=== PATIENT | male | born 1935 | race Caucasian/White ===

== ENCOUNTER 2017-07-21 14:58 | Inpatient (IN) | payer OTHER, BC ==
[~2017-07-21] VITALS: Ht 177.8 cm; Wt 76.7 kg
--- NOTE | ~2017-07-21 | S ---
[facility] Yazmin lynda[address]com[place] [place] [address] SURGICAL PATH RPT PROCEDURE Name: JEREMIAS SMITH Room #: 250-P ADM IN M.R.#: [id number] Admission: 08/18/17 Date of : 39 Discharge: Report #: [id number] Path Case #: [id number] PATHOLOGY REPORT COLLECTION DATE: 08/18/2017 RECEIVED DATE: 08/18/2017 SUBMITTING PHYS: Dr. Johann Abarca OTHER PHYS: SPECIMEN(S) RECEIVED: A.Left carotid artery plaque * * * * * * * * * * * * FINAL DIAGNOSIS: "Left carotid artery plaque", endarterectomy: - Calcific atherosclerosis. (CLW:kristina; 08/19/2017) PATHOLOGIST: Rhea Haley M.D. REPORT ELECTRONICALLY SIGNED BY: Rhea Haley M.D. DATE/TIME: 08/19/2017 15:18 * * * * * * * * * * * * GROSS PATHOLOGY: Received in formalin labeled "Jeremias Smith, left carotid artery plaque" and consists of a bifurcated segment of luminal plaque measuring 3.7 cm in length and diameter ranging from 0.3 cm to 1.3 cm. The segment shows 25% stenosis of lumen. The wall is moderately calcified. Social Security Benefits Interviewer sections are submitted as A1. (JOE; 08/18/2017) CLINICAL HISTORY: Carotid stenosis INITIAL CPT CODE(S): A; 13360 Professional services performed by [facility] at [facility] [address], [place] [address] Technical services performed by [facility] at [address] [place] [address], [place] [address], [place] [address]. [facility] [address] [place] [address] SURGICAL PATH RPT PROCEDURE Name: LUISJEREMIAS Caldwell Room #: 250-P ADM IN M.R.#: [id number] Admission: 08/18/17 Date of : 37 Discharge: Report #: [id number] Path Case #: [id number] [place] [id number] [address] PHONE: [phone] DIRECTOR: Tyrone Barney M.D. * * * END OF REPORT * * *
--- NOTE | ~2017-07-21 | EKG ---
[address] [place] [address] ELECTROCARDIOGRAM REPORT Name: JEREMIAS SMITH Room #: 250-P ADM IN M.R.#: [id number] Admission: 08/18/17 Attend Phys: Johann Abarca MD Discharge: Date of : 37 Report #: [id number] THIS REPORT FOR: //name// [facility] Test Date: 2017-08-19 Test Time: 10:55:37 Pat Name: JEREMIAS SMITH Department: Room: 250 P Gender: M Concrete Puddler: Danny KEITH : 1935 Requested By: Jamie Lynn Order Number: [id number] MD: Mason Castillo Measurements Intervals [place] Rate: 60 P: 71 RI: 185 QRS: 74 QRSD: 98 T: 208 QT: 431 QTc: 431 Interpretive Statements Sinus rhythm Probable LVH with secondary repol abnrm Abnormal T, lateral leads, similar to prior EKGs Compared to ECG 06/30/2017 10:10:08 Electronically Signed On 08-19-2017 11:27:50 CHECKERING MACHINE ADJUSTER by Mason Castillo [email or web address] <ELECTRONICALLY SIGNED> By: Mason Castillo MD 08/19/17 1127 1055 1055 Mason Castillo MD /[facility]
--- NOTE | ~2017-07-21 | EKG ---
[address] [address] ELECTROCARDIOGRAM REPORT Name: JEREMIAS SMITH Room #: 204-P ADM IN M.R.#: [id number] Admission: 08/18/17 Attend Phys: Johann Abarca MD Discharge: Date of : 37 Report #: [id number] THIS REPORT FOR: //name// [facility] Test Date: 2017-08-22 Test Time: 11:24:43 Pat Name: JEREMIAS SMITH Department: Room: 204 P Gender: M Lettuce Cutter: STUART : 1935 Requested By: Mason Castillo Order Number: [id number] MD: Mason Castillo Measurements Intervals [place] Rate: 109 P: [place]: QRS: 70 QRSD: 92 T: 233 QT: 322 QTc: 434 Interpretive Statements Atrial fibrillation Repol abnrm, unchanged Electronically Signed On 08-22-2017 15:55:21 MANAGER ASSISTED LIVING by Mason Castillo [email or web address] <ELECTRONICALLY SIGNED> By: Mason Castillo MD 08/22/17 1555 1124 1124 Mason Castillo MD /[facility]
--- NOTE | ~2017-07-21 | HC ---
[facility] [place] [address] CONSULTATION Name: JEREMIAS SMITH Room #: 250-P ADM IN M.R.#: [id number] Admission: 08/18/17 Attend Phys: Johann Abarca MD Discharge: Date of : 37 Report #: [id number] THIS REPORT FOR: //name// CC: FAM unknown Johann Abarca MD REFERRAL PHYSICIAN: Johann Abarca MD REASON FOR REFERRAL: Hypoxia. HISTORY OF PRESENT ILLNESS: The patient is an 82-year-old white male who is status post left carotid endarterectomy. Pulmonary consultation was requested regarding hypoxia. The patient states that he has smoked most of his life for the past 62 years. He is not going to quit. He has changes cigarettes to [employer]. Otherwise, he has never been told that he has chronic lung disease. He denies any history of chronic pulmonary problems. He is requiring 3 liters of O2 postoperatively. Chest x-ray is grossly unremarkable other than mild haziness involving the left lung field. This morning, he is complaining of sore throat. Otherwise, denies any dyspnea, chest pain, or productive cough. PAST MEDICAL HISTORY: Notable for tobacco abuse, smoking for the last 62 years, coronary artery disease with past myocardial infarction, stent placement in the past, peripheral artery disease status post bilateral iliac stents, GERD, anxiety and depression, left carotid artery stenosis at about 60% and also as mentioned above, chronic atrial fibrillation, hypertension, hyperlipidemia, ischemic cardiomyopathy, anticardiolipin antibody syndrome, on chronic anticoagulation. PAST SURGICAL HISTORY: As mentioned above including laparoscopic cholecystectomy, bilateral cataract surgery, skin cancer excision involving the right upper extremity. ALLERGIES: CLINDAMYCIN, which causes nausea, vomiting, and syncope and MEPERIDINE causes severe nausea and vomiting. HOME MEDICATIONS: Pravachol, Reglan, Luz Marina, Coumadin, omega-3, Plavix, multivitamins, omeprazole, Accupril, Norvasc, Cymbalta, Tenormin, Xanax, and mirabegron. FAMILY HISTORY: Noncontributory. [facility] [address] [place] [address] CONSULTATION Name: JEREMIAS SMITH Room #: 250-P [facility] IN M.R.#: [id number] Admission: 08/18/17 Attend Phys: Johann Abarca MD Discharge: Date of : 37 Report #: [id number] SOCIAL HISTORY: He continues to smoke about a pack a day for the last 62 years, he denies any alcohol use. He is retired. REVIEW OF SYSTEMS: As mentioned above, otherwise 10-point system review negative. PHYSICAL EXAMINATION: GENERAL: He is awake, alert, in no apparent distress. VITAL SIGNS: Temperature is 98 degrees Fahrenheit, pulse is 70, respiratory rate is 20, blood pressure is 163/41 mmHg, and saturation 93%. HEENT: Normocephalic, atraumatic. NECK: Status post left carotid endarterectomy. CHEST: Breath sounds are fair with mild expiratory wheezes in the bases, more so on the left than the right. No rales. Question scattered crackles. CARDIOVASCULAR: Normal S1, S2, it is irregular. No murmurs. Pulses are 2+/4+ bilaterally. ABDOMEN: Soft, nontender, no organomegaly or masses felt. GENITOURINARY: Deferred. RECTAL: Deferred. EXTREMITIES: There is no edema, cyanosis, or clubbing. LABORATORY DATA: Portable chest x-ray shows faint haziness along the right lung field, otherwise unremarkable. Sodium 141, potassium 4.0, chloride 111, CO2 is 21, BUN is 21, and creatinine is 1.3. Liver function enzymes are unremarkable. Arterial blood gas revealed pH 7.32, pCO2 32, pO2 61 on 3 liters of O2. WBC 13,300 and hemoglobin is 12.3. IMPRESSION: 1. Acute hypoxic respiratory failure in this 82-year-old white male. He has smoked for the past 62 years about a pack a day. The patient likely has underlying chronic obstructive pulmonary disease, hypoxia is expected. 2. Acute kidney injury/metabolic acidosis, appears to be present on admission yesterday. He has risk factors including peripheral artery disease. 3. Metabolic acidosis. Likely due to recent surgery. He is partially compensated. 4. Peripheral artery disease, status post left carotid endarterectomy. 5. Coronary artery disease, ischemic cardiomyopathy, prior myocardial infarction, stent placement. 6. Anticardiolipin antibody syndrome, we would continue anticoagulation once stable from surgical standpoint. 7. Hypertension. RECOMMENDATION: We will initiate bronchodilators, chest physiotherapy with incentive spirometry. Hypoxia should improve over time. I do not think steroid is necessary at this time. [address] [address] CONSULTATION Name: JEREMIAS SMITH Room #: 250-P [facility] IN M.R.#: [id number] Admission: 08/18/17 Attend Phys: Johann Abarca MD Discharge: Date of : 37 Report #: [id number] In terms of his metabolic acidosis, this is partially compensated, continue IV fluids and follow up electrolytes. This should resolve over time. DVT and GI prophylaxis will be addressed. Thank you for this consultation. <ELECTRONICALLY SIGNED> By: Yuri Cline MD 08/19/17 1615 1050 1124 Yuri Cline MD /nt
--- NOTE | ~2017-07-21 | HC ---
[facility] [place] [address] CONSULTATION Name: JEREMIAS SMITH Room #: 204-P [facility] IN M.R.#: [id number] Admission: 08/18/17 Attend Phys: Johann Abarca MD Discharge: Date of : 37 Report #: [id number] THIS REPORT FOR: //name// CC: FAM unknown Johann Abarca DATE OF SERVICE: 08/23/2017 HISTORY OF PRESENT ILLNESS: The patient is an 82-year-old white male with history of coronary artery disease, prior percutaneous coronary intervention with stents, who was admitted this time with severe left internal carotid artery stenosis. He underwent a left carotid endarterectomy on 08/18/2017. He had some problems with hypoxic respiratory failure, acute renal insufficiency and had atrial fibrillation for which he was placed on an amiodarone drip. He is noted to have an anxiety disorder. He is now being seen in rehabilitation medicine consultation. PAST MEDICAL HISTORY: Includes GERD, atrial fibrillation, hypertension, hyperlipidemia, ischemic cardiomyopathy, peripheral vascular disease, laparoscopic cholecystectomy, and anticardiolipin antibody syndrome. HABITS: Chronic tobacco abuse 1 pack per day for 65 years, continues to smoke. No history of alcohol abuse. ALLERGIES: CLINDAMYCIN AND MEPERIDINE. SOCIAL HISTORY: Lives in a house alone, did not utilize gait aids per his history. He notes a niece could stay with him and there is another couple that are friends that could stay with him. He lives in [place], [place]. REVIEW OF SYSTEMS: Did not offer any current complaints of chest pain, shortness of breath or abdominal discomfort. No focal extremity pain complaints. PHYSICAL EXAMINATION: GENERAL: An 82-year-old white male in no obvious distress. VITAL SIGNS: Last recorded temperature 98, pulse 72, respirations 18, and blood pressure 151/64. He is alert, pleasant. HEENT: Appeared to be benign. NEUROLOGIC: Cranial nerves are grossly intact. Left carotid endarterectomy incision appears to be intact. He is appropriate. He is now off oxygen. EXTREMITIES: Functional range of motion of the upper extremities, strength appears full. Lower extremities, no focal calf swelling, and functional range of motion with strength appearing to be a grade 4+/5. Tone is intact. Sit to stand is contact guard assistance. Gait 250 feet with a front-wheeled walker, contact guard assistance. [address] [address] CONSULTATION Name: JEREMIAS SMITH Room #: 204-P [facility] IN [facility].#: [id number] Admission: 08/18/17 Attend Phys: Johann Abarca MD Discharge: Date of : 37 Report #: [id number] ASSESSMENT: An 82-year-old male with the following problem list: 1. Medical complexity with generalized debilitation. 2. Left internal carotid artery stenosis status post left carotid endarterectomy on 08/18/2017. 3. Coronary artery disease with percutaneous intervention and stents. 4. Ischemic cardiomyopathy. 5. Atrial fibrillation for which he has been on IV amiodarone. 6. Acute renal insufficiency. 7. Acute hypoxic respiratory failure. PLAN: The patient is progressing well and has been ambulating 250 feet with the walker. Noted to be supervision with lower extremity dressing. He does have some steps at home, approximately 4 or 5 steps, and I will ask the therapist work with him on stairs. At this time, appears to be too high level to warrant an acute in-hospital inpatient rehabilitation stay, but we will follow along with you in the meantime. The hope is that he will be able to return directly home with home health care. Discussion with the nursing staff. Thank you for asking us to assist in this patient's care. <ELECTRONICALLY SIGNED> By: Oh Cordova MD 08/24/17 1003 1130 2118 Oh Cordova MD /[facility]
--- NOTE | ~2017-07-21 | O ---
[facility] [place] [address] OPERATIVE REPORT Name: JEREMIAS SMITH Room #: 204-P [facility] IN .R.#: [id number] Admission: 08/18/17 Attend Phys: Johann Abarca MD Discharge: 08/24/17 Date of : 37 Report #: [id number] THIS REPORT FOR: //name// CC: Dr. Menezes FAM unknown Johann Abarca DATE OF SERVICE: 08/18/2017 PREOPERATIVE DIAGNOSIS: Left internal carotid artery stenosis, asymptomatic. FINAL DIAGNOSIS: Left internal carotid artery stenosis, asymptomatic. OPERATIVE PROCEDURE PERFORMED: Left carotid endarterectomy. SURGEON: Johann Abarca M.D. ARTIST CONSULTANT: Zofia Flores. ANESTHESIA: General. OPERATIVE INDICATIONS: The patient is an 82-year-old male who was previously seen by me for left internal carotid artery stenosis. He has a known history of coronary artery disease and cardiomyopathy as well as history of congestive heart failure. He also was anticoagulated with warfarin. Upon evaluation by Dr. Menezes, was found to have evidence of a high grade left internal carotid artery stenosis and he is admitted now, brought to the operating room for left carotid endarterectomy. OPERATIVE SUMMARY: The patient was brought into the operating room, placed on the OR table in supine position. After anesthesia was induced via the general endotracheal route and monitoring lines have been positioned, the patient was prepped and draped in sterile fashion with chlorhexidine. An oblique incision was made in the left neck just anterior to the sternocleidomastoid muscle. Dissection was carried down through the platysma muscle. The facial vein was identified and was ligated and divided. We then dissected the contents of the carotid sheath on the left side, dissecting free the common internal and external carotid arteries. The vagus hypoglossal and ansa cervicalis nerves were identified and care was taken not to injure them during this case. [address]56 units of intravenous heparin were given. The internal, then the common and then the external carotid arteries were clamped. A common carotid arteriotomy was made and extended up into the internal carotid artery. A 14-Stateless shunt was then placed in the internal carotid artery, was allowed to back bleed and then placed in the common carotid artery where a Lexa tourniquet was used to secure it in place. This allowed blood flow to the brain during this case. EEG monitoring was performed throughout this case and no changes were noted. We [address] [address] OPERATIVE REPORT Name: LUISJEREMIAS Room #: 204-P [facility] IN [facility]#: [id number] Admission: 08/18/17 Attend Phys: Johann Abarca MD Discharge: 08/24/17 Date of : 37 Report #: [id number] then dissected the plaque from the vessel wall. It was hard and very calcified. Distal tapering was good. The plaque was amputated proximally and an eversion endarterectomy was performed in the external carotid artery. All loose fronds were then debrided from the vessel up surface under loupe magnification and headlight illumination. As the vessel was nicely sized, and a patch was not required. I did place tacking sutures of 7-0 Prolene in the distal intima. I then closed the arteriotomy with 6-0 Prolene suture in a running fashion. Prior to completing this closure, the shunt was removed. The site was flushed both retrograde and antegrade and was irrigated with heparinized saline solution. Prior to completing the closure, the artery was deaired by releasing the clamp on the external carotid artery. The closure was completed, the clamp was removed from the common carotid artery and then finally from the internal carotid artery. Protamine was given to reverse the heparin. Once adequate hemostasis was achieved, the wound was closed in multiple layers with absorbable suture. The procedure was completed. The patient was taken to postanesthesia care unit where neurologic exam showed no evidence of neurologic injury. <ELECTRONICALLY SIGNED> By: Johann Abarca MD 09/21/17 1436 1655 1733 Johann Abarca MD /nt
--- NOTE | ~2017-07-21 | EKG ---
[address] [address] ELECTROCARDIOGRAM REPORT Name: JEREMIAS SMITH Room #: 204-P ADM IN M.R.#: [id number] Admission: 08/18/17 Attend Phys: Johann Abarca MD Discharge: Date of : 37 Report #: [id number] THIS REPORT FOR: //name// [facility] Test Date: 2017-08-21 Test Time: 23:48:02 Pat Name: JEREMIAS SMITH Department: Room: 204 Gender: M Product Consultant: RADHA : 1935 Requested By: Mason Castillo Order Number: [id number] MD: Mason Castillo Measurements Intervals [place] Rate: 129 P: [place]: QRS: 78 QRSD: 94 T: 233 QT: 288 QTc: 422 Interpretive Statements Atrial fibrillation Probable LVH with secondary repol abnrm Anterior Q waves, possibly due to LVH Electronically Signed On 08-23-2017 12:00:51 MEDICAL APPARATUS MODEL MAKER by Mason Castillo [email or web address] <ELECTRONICALLY SIGNED> By: Mason Castillo MD 08/23/17 1200 2348 47 Mason Castillo MD /[facility]
--- NOTE | ~2017-07-21 | EKG ---
[address] [address] ELECTROCARDIOGRAM REPORT Name: JEREMIAS SMITH Room #: 204-P ADM IN M.R.#: [id number] Admission: 08/18/17 Attend Phys: Johann Abarca MD Discharge: Date of : 37 Report #: [id number] THIS REPORT FOR: //name// [facility] Test Date: 2017-08-21 Test Time: 13:54:28 Pat Name: JEREMIAS SMITH Department: Room: 204 P Gender: M Molder Foam Rubber: ARTEM : 1935 Requested By: Mason Castillo Order Number: [id number] MD: Mason Castillo Measurements Intervals [place] Rate: 73 P: 81 AR: 164 QRS: 79 QRSD: 101 T: 248 QT: 391 QTc: 431 Interpretive Statements Sinus rhythm Anteroseptal infarct, old ST/T changes similar to prior Electronically Signed On 08-21-2017 17:32:03 TRAVEL RN by Mason Castillo [email or web address] <ELECTRONICALLY SIGNED> By: Mason Castillo MD 08/21/17 1732 1354 1354 Mason Castillo MD /[facility]
[~2017-07-21 14:58] MED LIST: ACCUPRIL10 MG PO; ALLEGRA ALLERG180 MG PO; ASPIRIN325 PO; ATENOLOL 50MG T50 M1 PO; COUMADIN 2.5MG2.5 M1 PO; COUMADIN 5 MG TA5 M1 PO; COUMADIN7.5 MG PO; CYMBALTA30 MG PO; FENTANYL PA25 MCG/HR TD; LOVENOX INJ; MYRBETRIQ50 MG PO; NIACIN 500 MG500 M1 PO; NORCO 10-325 T1 EACH PO; NORCO 5-325 TA1 EACH PO; NORVASC10 MG PO; OMEGA-31000 MG PO; OMEPRAZOLE20 M2 PO; PLAVIX 75 MG TA75 MG PO; PRAVACHOL40 MG PO; REGLAN 10 MG TA10 MG PO; THERA-TABS M C1 EACH PO; XANAX 0.5 MG0.5 MG PO
[2017-08-18 09:09] LABS: URINE BILIRUBIN NEGATIVE (Negative); URINE BLOOD NEGATIVE (Negative); URINE CLARITY CLEAR; URINE COLOR YELLOW; URINE GLUCOSE-RANDOM* NEGATIVE (Negative); URINE KETONES NEGATIVE (Negative); URINE LEUKOCYTES NEGATIVE (Negative); URINE NITRITE NEGATIVE (Negative); URINE PROTEIN (DIPSTICK) NEGATIVE (Negative); URINE SPECIFIC GRAVITY 1.015 (1.005-1.035); URINE UROBILINOGEN 0.2 E.U./dl (0.2-1.0)
[2017-08-18 09:16] LABS: HEMATOCRIT 44.5 % (42.0-52.0); HEMOGLOBIN 14.8 gm/dL (14.0-18.0); MCH 30.8 pg (26.0-34.0); MCHC 33.3 g/dL (28.0-37.0); MCV 92.5 fL (80.0-100.0); RBC 4.8 mil/uL (4.50-6.00); RDW 13.1 % (10.5-14.5); WBC 9.5 thou/uL (4.0-11.0)
[2017-08-18 09:30] LABS: CALCIUM 9.4 mg/dL (8.5-10.1); CREATININE 1.3 mg/dL (0.7-1.3); POTASSIUM 4.3 mmol/L (3.5-5.1)
[2017-08-18 09:35] LABS: ALBUMIN 3.3 g/dL (3.4-5.0); APTT 29.1 Seconds (24.5-32.8); TOTAL BILIRUBIN 0.4 mg/dL (<0.1-1.0); TOTAL PROTEIN 6.7 g/dL (6.4-8.2)
[2017-08-18 09:51] VITALS: BP 146/58
[2017-08-18 14:02] VITALS: BP 111/44
[2017-08-18 19:27] VITALS: BP 102/42
[2017-08-18 21:18] VITALS: BP 107/44
[2017-08-19] VITALS (13 sets, daily range): BP systolic 113–145; BP diastolic 34–91
[2017-08-19 05:10] LABS: MCH 30.7 pg (26.0-34.0); MCHC 32.5 g/dL (28.0-37.0); MCV 94.5 fL (80.0-100.0); RBC 4.02 mil/uL (4.50-6.00); RDW 13.2 % (10.5-14.5); WBC 13.3 thou/uL (4.0-11.0)
[2017-08-19 05:21] LABS: CALCIUM 8.1 mg/dL (8.5-10.1); CREATININE 1.3 mg/dL (0.7-1.3)
[2017-08-19 05:27] LABS: HEMOGLOBIN 12.3 gm/dL (14.0-18.0)
[2017-08-19 05:52] LABS: HCO3 17.1 mmol/L (22.0-26.0); PCO2 34.1 mmHg (35.0-45.0); PO2 61.4 mmHg (80.0-100.0); pH 7.318 (7.360-7.450); sO2 89.9 % (92.0-98.0)
[2017-08-19 14:57] LABS: INR 1.2; PROTIME 11.8 Seconds (9.3-11.4)
[2017-08-20] VITALS (8 sets, daily range): BP systolic 139–189; BP diastolic 49–93
[2017-08-20 05:00] LABS: HEMATOCRIT 37.4 % (42.0-52.0); HEMOGLOBIN 12.5 gm/dL (14.0-18.0); MCH 31.1 pg (26.0-34.0); MCHC 33.3 g/dL (28.0-37.0); MCV 93.3 fL (80.0-100.0); RBC 4.01 mil/uL (4.50-6.00); RDW 13.4 % (10.5-14.5); WBC 14.8 thou/uL (4.0-11.0)
[2017-08-20 05:08] LABS: CALCIUM 8.4 mg/dL (8.5-10.1); CREATININE 1.1 mg/dL (0.7-1.3); POTASSIUM 3.9 mmol/L (3.5-5.1)
[2017-08-20 10:40] LABS: INR 1.4; PROTIME 14.4 Seconds (9.3-11.4)
[2017-08-20] MEDS ORDERED: BYSTOLIC 5 MG5 M1 PO (15:54)
[2017-08-20] MEDS ORDERED: DUONEB 2.5-0.5 M3 ML INH (15:54)
[2017-08-20] MEDS ORDERED: QUINAPRIL 20 MG20 MG PO (15:54)
[2017-08-20] MEDS ORDERED: ASPIR 8181 MG PO (15:54)
[2017-08-21] VITALS (7 sets, daily range): BP systolic 130–191; BP diastolic 50–78
[2017-08-21 04:45] LABS: CALCIUM 8.9 mg/dL (8.5-10.1); CREATININE 1.2 mg/dL (0.7-1.3); POTASSIUM 3.5 mmol/L (3.5-5.1)
[2017-08-22 04:05] VITALS: BP 144/64
[2017-08-22 07:15] VITALS: BP 144/67
[2017-08-22 12:05] VITALS: BP 150/88
[2017-08-22 15:35] VITALS: BP 141/62
[2017-08-22 20:11] VITALS: BP 153/68
[2017-08-23] VITALS: BP 140/54
[2017-08-23 04:05] LABS: CALCIUM 9.1 mg/dL (8.5-10.1); CREATININE 1.2 mg/dL (0.7-1.3); POTASSIUM 3.5 mmol/L (3.5-5.1)
[2017-08-23 04:29] VITALS: BP 180/74
[2017-08-23 07:25] VITALS: BP 161/64
[2017-08-23 10:43] LABS: INR 1.8; PROTIME 18.7 Seconds (9.3-11.4)
[2017-08-23 11:10] VITALS: BP 153/52
[2017-08-23 19:34] VITALS: BP 196/78
[2017-08-24 03:25] LABS: CREATININE 1.1 mg/dL (0.7-1.3); POTASSIUM 3.6 mmol/L (3.5-5.1)
[2017-08-24 03:30] LABS: INR 1.7; PROTIME 17.7 Seconds (9.3-11.4)
[2017-08-24 04:01] VITALS: BP 142/88
[2017-08-24] MEDS ORDERED: PACERONE 200 M200 M1 PO (08:01)
[2017-08-24] MEDS ORDERED: BYSTOLIC 5 MG5 M1 PO (08:01)
[2017-08-24 08:37] VITALS: BP 176/74
[2017-08-24 11:52] VITALS: BP 129/70
[2017-08-24 12:24] VITALS: BP 163/50
[2017-08-24 15:42] VITALS: BP 163/50
[2017-08-24 15:47] VITALS: BP 163/50
[2017-10-05] MEDS ORDERED: CELEXA20 MG PO (10:38)
[2017-10-05] MEDS ORDERED: PERCOCET 10-321 EACH PO (10:38)
[2017-10-05] MEDS ORDERED: STOOL SOFTENER100 M1 PO (10:42)
[2017-10-05] MEDS ORDERED: PACERONE 200 M200 M1 PO (11:03)
[2017-10-05] MEDS ORDERED: ASPIR 8181 MG PO (11:06)
[2017-10-05] MEDS ORDERED: BYSTOLIC 5 MG5 M1 PO (11:08)
[2017-10-05] MEDS ORDERED: ACCUPRIL40 MG PO (11:09)
== END 2017-08-24 16:10 | disposition home or self-care (01) | DRG 25 ==
LOC: PRE 14:58 → TBA 08-18 08:05 → ICU 08-18 08:05 → PRE 08-18 08:51 → ICU 08-18 14:26 → 2N 08-20 17:25 → ENTRNSPT 08-24 15:43 → EDTRNSPTSTS 08-24 15:46 → 2N 08-24 16:10
PROVIDERS: Internal Medicine Cardiovascular Disease; Internal Medicine Pulmonary Disease; Nurse Practitioner; Nurse Practitioner Adult Health; Nurse Practitioner Gerontology; Thoracic Surgery (Cardiothoracic Vascular Surgery)
DX: I65.22 Occlusion and stenosis of left carotid artery (principal); J96.01 Acute respiratory failure with hypoxia; N17.9 Acute kidney failure, unspecified; E87.2 Acidosis; D68.59 Other primary thrombophilia; J98.11 Atelectasis; I25.10 Atherosclerotic heart disease of native coronary artery without angina pectoris; I25.5 Ischemic cardiomyopathy; I48.0 Paroxysmal atrial fibrillation; I73.9 Peripheral vascular disease, unspecified; F41.9 Anxiety disorder, unspecified; F32.9 Major depressive disorder, single episode, unspecified; E78.5 Hyperlipidemia, unspecified; I10 Essential (primary) hypertension; F17.210 Nicotine dependence, cigarettes, uncomplicated; K21.9 Gastro-esophageal reflux disease without esophagitis; J44.9 Chronic obstructive pulmonary disease, unspecified; Z60.2 Problems related to living alone; Z79.01 Long term (current) use of anticoagulants; Z98.41 Cataract extraction status, right eye; Z98.42 Cataract extraction status, left eye; Z88.8 Allergy status to other drugs, medicaments and biological substances; Z88.1 Allergy status to other antibiotic agents; Z95.5 Presence of coronary angioplasty implant and graft; Z90.49 Acquired absence of other specified parts of digestive tract; Z82.49 Family history of ischemic heart disease and other diseases of the circulatory system; I25.2 Old myocardial infarction; Z85.828 Personal history of other malignant neoplasm of skin; Z71.6 Tobacco abuse counseling
CPT/HCPCS: 10078; 10081; 50010; 50101; 50386; 50417; 50455; 51301; 56524; 56526; 56528; 56534; 56639; 62110; 62900; 65002; 65020; 65040; 65045; 65090; 70005

== ENCOUNTER → 2017-10-06 | Outpatient (CLI) | payer OTHER, BC ==
[~2017-10-06] VITALS: Ht 177.8 cm; Wt 78.0 kg
[~2017-10-06] MED LIST changes: +ACCUPRIL40 MG PO; +ASPIR 8181 MG PO; +BYSTOLIC 5 MG5 M1 PO; +CELEXA20 MG PO; +DUONEB 2.5-0.5 M3 ML INH; +PACERONE 200 M200 M1 PO; +PERCOCET 10-321 EACH PO; +QUINAPRIL 20 MG20 MG PO; +STOOL SOFTENER100 M1 PO
--- NOTE | ~2017-10-06 | P ---
[facility] [place] [address] PROCEDURE REPORT Name: JEREMIAS SMITH [id number] Admission: 10/06/17 Attend Phys: Addy Tenorio Discharge: Date of : 39 Report #: [id number] THIS REPORT FOR: //name// CC: Addy Menezes MD [facility] DATE OF SERVICE: 10/06/2017 PROCEDURE PERFORMED: Upper endoscopy. HISTORY OF PRESENT ILLNESS: The patient is an 82-year-old male with a history of vascular disease, who underwent a carotid endarterectomy on 08/18/2017. At the time, he was taking aspirin, Plavix and Coumadin, began having black stools. This lasted for several weeks. Apparently, his hemoglobin has been monitored and has been stable. I do not have a copy of these results currently. He has not required a transfusion. He has now been off his anticoagulation therapy for the last 10 days and does report no further black stools at this time. Plan is for EGD and colonoscopy today. He does have a history of constipation. Denies any diarrhea. He takes omeprazole on a daily basis. Denies any dysphagia. No family history of colon cancer. DESCRIPTION OF PROCEDURE: The risks and benefits of the procedure were explained to the patient, those risks including but not limited to bleeding, perforation, and the risk of sedation. He understood these risks and gave informed consent. Sedation was given using propofol per Anesthesia. Next, using a standard Fujinon upper endoscope, the scope was placed in the patient's mouth and advanced under direct vision through the esophagus, stomach and into the second portion of the duodenum. The esophagus was normal throughout. The GE junction was normal. Overall, the gastric mucosa was normal. No evidence of erosions or ulcerations. The pylorus was normal and patent. The duodenal bulb, first and second portion were all normal. The scope was then withdrawn and the procedure terminated. The patient tolerated the procedure well. IMPRESSION: Normal upper endoscopy. RECOMMENDATIONS: We will proceed with colonoscopy next today. Thank you for allowing me to participate in his care. <ELECTRONICALLY SIGNED> By: Addy Sosa MD 10/11/17 0907 0940 0958 Addy Sosa MD /nt
--- NOTE | ~2017-10-06 | S ---
[facility] [place] [address] SURGICAL PATH RPT PROCEDURE Name: JEREMIAS SMITH Room #: REG [facility] M..#: [id number] Admission: 10/06/17 Date of : 39 Discharge: Report #: [id number] Path Case #: [id number] PATHOLOGY REPORT COLLECTION DATE: 10/06/2017 RECEIVED DATE: 10/06/2017 SUBMITTING PHYS: Dr. Addy Sosa OTHER PHYS: Dr. Oh Diaz SPECIMEN(S) RECEIVED: A.Bx of polyp descending colon * * * * * * * * * * * * FINAL DIAGNOSIS: Polyp at descending colon, endoscopic biopsy: - Tubular adenoma. - Negative for high-grade dysplasia. (IUV:pit; 10/07/2017) PATHOLOGIST: Liliya Whelan M.D. REPORT ELECTRONICALLY SIGNED BY: Liliya Whelan M.D. DATE/TIME: 10/07/2017 13:20 * * * * * * * * * * * * GROSS PATHOLOGY: Received in formalin labeled "Jeremias Smith, BX of polyp at descending colon," are 6 segments of peterson soft tissue measuring 1.8 x 1.3 x 0.2 cm in aggregate dimensions and ranging from 0.2 to 0.5 cm in maximum dimension. The specimen is submitted entirely in cassette A1. (TSD; 10/06/2017) CLINICAL HISTORY: Colon polyps INITIAL CPT CODE(S): A; 03493 Professional services performed by [facility] at [place] [address] [place] [address] Technical services performed by [facility] at [address] [place] [address], [address] [address]. [facility] [address] [place] [address] SURGICAL PATH RPT PROCEDURE Name: JEREMIAS SMITH Room #: REG [facility]#: [id number] Admission: 10/06/17 Date of : 39 Discharge: Report #: [id number] Path Case #: [id number] [place] [id number] [address] PHONE: [phone] DIRECTOR: Tyrone Barney M.D. * * * END OF REPORT * * *
--- NOTE | ~2017-10-06 | P ---
[facility] [place] [address] PROCEDURE REPORT Name: JEREMIAS SMITH Room #: REG [id number] Admission: 10/06/17 Attend Phys: Addy Tenorio Discharge: Date of : 39 Report #: [id number] THIS REPORT FOR: //name// CC: Addy Menezes MD [facility] DATE OF SERVICE: 10/06/2017 PROCEDURE PERFORMED: Colonoscopy with biopsies. HISTORY OF PRESENT ILLNESS: The patient is an 82-year-old male with a recent black melanotic type stools. He had been on aspirin, Coumadin and Plavix. He has a history of coronary artery disease with stent placement in the past as well as a carotid endarterectomy that was performed in August of this year. He states he has had black stools for an approximately one month. He has been holding his anticoagulation for the last 10 days and reports no further black stools at this time. I do not have a recent hemoglobin level on the patient at this time. He underwent a colonoscopy by myself in October 2013, in which small internal hemorrhoids were noted, but otherwise normal. The overall prep at that time was good. PROCEDURE: The risks and benefits of the procedure were explained to the patient, those risks including, but not limited to bleeding, perforation, and the risk of sedation. He understood these risks and gave informed consent. Sedation was given using propofol per anesthesia. Next, a digital rectal exam was initially performed, which was normal. Next, using a standard Fujinon colonoscope, the scope was placed in the patient's anus and advanced under direct vision to the cecum. The overall prep was good in most areas. There were a few small areas in which the prep was fairly poor. Multiple washings and aspirations were performed. I was again able to visualize most areas quite well. There were small areas that did limit visualization, however. The cecum and ileocecal valve were normal in appearance. The ascending and transverse colon were normal. In the descending colon, a 5-mm sessile polyp was noted, this was removed with cold forceps, otherwise normal. Sigmoid colon was normal. The areas that were able to be visualized in the rectum were normal as well. On retroflexion, small nonbleeding internal hemorrhoids were noted. The scope was then withdrawn and the procedure terminated. The patient tolerated the procedure well. IMPRESSION: 1. Small colonic polyp. 2. Small internal hemorrhoids. 3. Otherwise, normal colonoscopy. Again, prep was poor in some small areas. [address] [address] PROCEDURE REPORT Name: LUISJEREMIAS Braden Room #: REG [place]#: [id number] Admission: 10/06/17 Attend Phys: Addy Tenorio Discharge: Date of : 39 Report #: [id number] There was no evidence of blood throughout the exam on EGD or colonoscopy today. RECOMMENDATIONS: 1. Await biopsy results. 2. We would recommend proceeding with Hemoccult testing of stools times 3. If this is positive, then we would consider an M2 capsule endoscopy to rule out possible etiology of bleeding from small bowel. Thank you for allowing me to participate in his care. <ELECTRONICALLY SIGNED> By: Addy Sosa MD 10/11/17 [id number] Addy Sosa MD /nt
== END | disposition home or self-care (01) ==
LOC: GI 08:08
DX: D12.4 Benign neoplasm of descending colon (principal); K21.9 Gastro-esophageal reflux disease without esophagitis; I25.10 Atherosclerotic heart disease of native coronary artery without angina pectoris; Z98.890 Other specified postprocedural states; Z79.899 Other long term (current) drug therapy; K64.8 Other hemorrhoids; F32.9 Major depressive disorder, single episode, unspecified; F41.9 Anxiety disorder, unspecified; F17.210 Nicotine dependence, cigarettes, uncomplicated; Z95.5 Presence of coronary angioplasty implant and graft; I10 Essential (primary) hypertension; E78.5 Hyperlipidemia, unspecified; I73.9 Peripheral vascular disease, unspecified; I21.3 ST elevation (STEMI) myocardial infarction of unspecified site; I48.91 Unspecified atrial fibrillation; I25.5 Ischemic cardiomyopathy
CPT/HCPCS: 62110; 62900